=== PATIENT | male | born 1945 | race Caucasian/White ===

== ENCOUNTER 2023-06-20 12:26 | Inpatient (IN) | payer OTHER ==
[2023-06-20] MEDS ORDERED: ALBUTEROL SO4 2.5/IPRATROPIUM 0.5 INH SOL 3 ML VIAL.NEB. NEB ONE (13:09)
[2023-06-20] MEDS: ALBUTEROL SO4 2.5/IPRATROPIUM 0.5 INH SOL 3 ML VIAL.NEB. NEB ONE (13:14)
[2023-06-20] MEDS ORDERED: methylPREDNISolone NA SUCC 125 MG/2 ML VIAL ONE (13:34)
[2023-06-20] MEDS ORDERED: ACETAMINOPHEN INJECTION 100 ML IVPB ONE (13:38)
[2023-06-20 13:39] LABS: BASO % 0.3 % (0-2.0); EOS % 0.2 % (0-4.5); HEMOGLOBIN 8.3 GM/dL (11.7-16.9); LYMPH % 9.5 % (8-40); MCH 20.3 pg (25.7-33.7); MCHC 30.6 g/dl (32.0-35.9); MEAN CELL VOLUME 66.4 fl (80-96); MEAN PLT VOLUME 8.2 fl (7.5-11.1); MONO % 3.8 % (3.8-10.2); NEUT % 86.2 % (42.8-82.8); PLATELET COUNT 328 10^3/uL (134-434); RBC 4.06 M/mm3 (4.00-5.60); RDW 18.8 % (11.9-15.9); WHITE BLOOD COUNT 12.8 K/mm3 (4.0-10.0)
[2023-06-20] MEDS: methylPREDNISolone NA SUCC 125 MG/2 ML VIAL IVPUSH ONE (13:42)
[2023-06-20] MEDS: ACETAMINOPHEN 1000 MG/100 ML BAG IVPB ONE (13:42)
[2023-06-20 13:45] LABS: INR 1.17 (0.83-1.09); PROTHROMBIN TIME (PATIENT) 13.6 SEC (9.7-13.0)
[2023-06-20 13:59] LABS: ALBUMIN 2.1 g/dl (3.4-5.0); CALCIUM 13.6 mg/dL (8.5-10.1)
[2023-06-20 14:00] LABS: BLOOD UREA NITROGEN 20.1 mg/dL (7-18)
[2023-06-20 14:02] LABS: CREATININE 0.8 mg/dL (0.55-1.3)
[2023-06-20 14:04] LABS: BILIRUBIN,TOTAL 0.4 mg/dL (0.2-1); TOT PROT 7.4 g/dl (6.4-8.2)
[2023-06-20 14:15] LABS: VENOUS BASE EXCESS 6.3 mmol/L (-2-2); VENOUS O2 SATURATION 90.6 % (70-80); VENOUS PCO2 42.3 mmHg (38-52); VENOUS PH 7.475 (7.310-7.410)
[2023-06-20 14:18] LABS: ANISOCYTOSIS 0; MACROCYTOSIS 0
[2023-06-20] MEDS ORDERED: PIPERACILLIN/TAZOB 3.375 GM 3.375 GM/50 ML BAG IVPB ONE (14:57)
[2023-06-20] MEDS ORDERED: VANCOMYCIN 1 GRAM (PRE-DOCKED) 1,000 MG/250 ML BAG IVPB ONE (14:57)
[2023-06-20] MEDS ORDERED: PIPERACILLIN/TAZOB 4.5 GM 4.5 GM/100 ML BAG IVPB ONE (15:00)
[2023-06-20] MEDS: PIPERACILLIN/TAZOB 4.5 GM 4.5 GM in DEXTROSE 5%-WATER 100 ML IVPB ONE (15:09)
[2023-06-20] MEDS: VANCOMYCIN 1,000 MG in DEXTROSE 5%-WATER - 250 ML IVPB ONE (15:31)
[2023-06-20 18:25] VITALS: BMI 15.6
[2023-06-20] MEDS ORDERED: ALBUTEROL SO4 2.5/IPRATROPIUM 0.5 INH SOL 3 ML VIAL.NEB. NEB PRN (19:28)
[2023-06-20] MEDS: MIDODRINE HCL 5 MG TABLET PO SCH (21:06)
[2023-06-21] MEDS: methylPREDNISolone NA SUCC 40 MG/1 ML VIAL IVPUSH SCH (02:31)
[2023-06-21] MEDS: PIPERACILLIN/TAZOB 3.375 GM 3.375 GM in DEXTROSE 5%-WATER - 50 ML IVPB SCH ×3 (02:31→17:48)
[2023-06-21 09:24] LABS: HEMATOCRIT 30.5 % (35.4-49); HEMOGLOBIN 8.9 GM/dL (11.7-16.9); MCHC 29.1 g/dl (32.0-35.9); MEAN CELL VOLUME 67.8 fl (80-96); MEAN PLT VOLUME 8.8 fl (7.5-11.1); PLATELET COUNT 351 10^3/uL (134-434); RDW 18.9 % (11.9-15.9); WHITE BLOOD COUNT 24.3 K/mm3 (4.0-10.0)
[2023-06-21 09:31] LABS: MCH 19.8 pg (25.7-33.7)
[2023-06-21 09:45] LABS: POTASSIUM 3.9 mmol/L (3.5-5.1)
[2023-06-21 09:52] LABS: CALCIUM 13.3 mg/dL (8.5-10.1)
[2023-06-21 09:53] LABS: ALBUMIN 2.3 g/dl (3.4-5.0); BLOOD UREA NITROGEN 25.8 mg/dL (7-18)
[2023-06-21 09:56] LABS: BILIRUBIN,TOTAL 0.5 mg/dL (0.2-1); CREATININE 1.2 mg/dL (0.55-1.3)
[2023-06-21] MEDS: SERTRALINE HCL 50 MG TABLET (FP) PO SCH (10:03)
[2023-06-21 10:04] LABS: ANISOCYTOSIS 0; MACROCYTOSIS 0
[2023-06-21] MEDS: ENOXAPARIN NA (PORCINE) 40 MG/0.4 ML DISP.SYRIN SQ SCH (10:04)
[2023-06-21] MEDS: FLUTICASONE/UMECLIDIN/VILANTER(200-62.5-25 TRELEGY ELLIPTA) INAHLER IH SCH (12:03)
[2023-06-21] MEDS: ALBUTEROL SO4 2.5/IPRATROPIUM 0.5 INH SOL 3 ML VIAL.NEB. NEB SCH (12:45)
[2023-06-21] MEDS: SODIUM CHLORIDE 250 ML IV ONE (14:16)
[2023-06-21] MEDS: NYSTATIN 500,000 UNITS/5 ML SUSPENSION PO SCH (14:17)
[2023-06-21] MEDS: BUDESONIDE/FORMETEROL FUMARATE 160/4.5 mcg INHALER IH SCH (14:56)
[2023-06-21] MEDS: MIDODRINE HCL 5 MG TABLET PO SCH (22:18)
[2023-06-22 19:46] LABS: PH,URINE 5.5 (5.0-8.0); URINE APPEARANCE CLEAR; URINE BILIRUBIN NEGATIVE (NEGATIVE); URINE COLOR YELLOW; URINE GLUCOSE (UA) NEGATIVE (NEGATIVE); URINE KETONE NEGATIVE (NEGATIVE); URINE LEUK ESTERASE NEGATIVE (NEGATIVE); URINE NITRITE NEGATIVE (NEGATIVE); URINE PROTEIN NEGATIVE (NEGATIVE); URINE UROBILINOGEN 0.2 mg/dL (0.2-1.0)
[2023-06-24 08:45] LABS: BASO % 0.2 % (0-2.0); HEMATOCRIT 24.2 % (35.4-49); LYMPH % 2.4 % (8-40); MCHC 28.8 g/dl (32.0-35.9); MEAN CELL VOLUME 68.7 fl (80-96); MEAN PLT VOLUME 9.1 fl (7.5-11.1); MONO % 1.3 % (3.8-10.2); NEUT % 96.1 % (42.8-82.8); PLATELET COUNT 199 10^3/uL (134-434); RBC 3.52 M/mm3 (4.00-5.60); RDW 18.8 % (11.9-15.9); WHITE BLOOD COUNT 17.1 K/mm3 (4.0-10.0)
[2023-06-24 08:56] LABS: MCH 19.8 pg (25.7-33.7)
[2023-06-24 09:04] LABS: POTASSIUM 4.1 mmol/L (3.5-5.1)
[2023-06-24 09:11] LABS: CALCIUM 11.5 mg/dL (8.5-10.1)
[2023-06-24 09:12] LABS: ALBUMIN 2.1 g/dl (3.4-5.0); BLOOD UREA NITROGEN 30.1 mg/dL (7-18)
[2023-06-24 09:14] LABS: BILIRUBIN,TOTAL 0.2 mg/dL (0.2-1)
[2023-06-24 09:15] LABS: TOT PROT 6.5 g/dl (6.4-8.2)
[2023-06-24 09:16] LABS: CREATININE 0.8 mg/dL (0.55-1.3)
[2023-06-24 11:45] LABS: ANISOCYTOSIS 3+; MACROCYTOSIS 0
[2023-06-24] MEDS: AMINO ACIDS/PROTEIN HYDROLYS 30 ML LIQUID.PKT PO SCH (17:35)
[2023-06-25] MEDS: MULTIVITAMINS THER W-MINERALS COMBO TABLET (FP) PO SCH (10:28)
[2023-06-27 10:15] LABS: HEMATOCRIT 26.6 % (35.4-49); MCH 20.3 pg (25.7-33.7); MCHC 29.9 g/dl (32.0-35.9); MEAN CELL VOLUME 67.9 fl (80-96); MEAN PLT VOLUME 8.8 fl (7.5-11.1); PLATELET COUNT 216 10^3/uL (134-434); RBC 3.92 M/mm3 (4.00-5.60); RDW 19.5 % (11.9-15.9); WHITE BLOOD COUNT 18.2 K/mm3 (4.0-10.0)
[2023-06-27] MEDS: methylPREDNISolone NA SUCC 40 MG/1 ML VIAL IVPUSH SCH (10:43)
[2023-06-29] MEDS: PIPERACILLIN/TAZOB 3.375 GM 3.375 GM in DEXTROSE 5%-WATER - 50 ML IVPB SCH (01:09)
[2023-06-30 08:48] LABS: BASO % 0.1 % (0-2.0); EOS % 0.2 % (0-4.5); HEMATOCRIT 25.7 % (35.4-49); HEMOGLOBIN 7.9 GM/dL (11.7-16.9); LYMPH % 7.1 % (8-40); MCH 21.1 pg (25.7-33.7); MCHC 30.9 g/dl (32.0-35.9); MEAN CELL VOLUME 68.4 fl (80-96); MEAN PLT VOLUME 8.8 fl (7.5-11.1); MONO % 3.3 % (3.8-10.2); NEUT % 89.3 % (42.8-82.8); PLATELET COUNT 239 10^3/uL (134-434); RBC 3.75 M/mm3 (4.00-5.60); RDW 19.6 % (11.9-15.9)
[2023-06-30 09:10] LABS: POTASSIUM 3.7 mmol/L (3.5-5.1)
[2023-06-30 09:14] LABS: BLOOD UREA NITROGEN 25.1 mg/dL (7-18); CALCIUM 11.2 mg/dL (8.5-10.1)
[2023-06-30 09:17] LABS: CREATININE 0.8 mg/dL (0.55-1.3)
[2023-06-30 09:19] LABS: BILIRUBIN,TOTAL 0.3 mg/dL (0.2-1)
[2023-06-30 11:09] LABS: ANISOCYTOSIS 1+; MACROCYTOSIS 0
[2023-07-01] MEDS: ATORVASTATIN CA 10 MG TABLET (FP) PO SCH (22:32)
[2023-07-02] MEDS: methylPREDNISolone NA SUCC 40 MG/1 ML VIAL IVPUSH SCH (10:33)
[2023-07-02] MEDS: SODIUM CHLORIDE 250 ML IV ONE (10:36)
[2023-07-02] MEDS: DEXTROSE 5%-0.45% SALINE 1,000 ML IV SCH (14:58)
[2023-07-03 08:40] LABS: HEMATOCRIT 24.7 % (35.4-49); HEMOGLOBIN 7.5 GM/dL (11.7-16.9); MCH 21.3 pg (25.7-33.7); MCHC 30.4 g/dl (32.0-35.9); MEAN CELL VOLUME 69.9 fl (80-96); MEAN PLT VOLUME 8.5 fl (7.5-11.1); PLATELET COUNT 223 10^3/uL (134-434); RBC 3.54 M/mm3 (4.00-5.60); RDW 20.7 % (11.9-15.9); WHITE BLOOD COUNT 19.7 K/mm3 (4.0-10.0)
[2023-07-03 08:50] LABS: POTASSIUM 3.9 mmol/L (3.5-5.1)
[2023-07-03 08:56] LABS: CALCIUM 11.8 mg/dL (8.5-10.1)
[2023-07-03 08:57] LABS: ALBUMIN 1.9 g/dl (3.4-5.0)
[2023-07-03 09:00] LABS: CREATININE 0.6 mg/dL (0.55-1.3)
[2023-07-03 09:02] LABS: TOT PROT 5.8 g/dl (6.4-8.2)
[2023-07-03 09:03] LABS: BILIRUBIN,TOTAL 0.3 mg/dL (0.2-1)
[2023-07-03 09:54] LABS: ANISOCYTOSIS 2+; MACROCYTOSIS 1+
[2023-07-04 00:30] LABS: URINE APPEARANCE CLEAR; URINE BILIRUBIN NEGATIVE (NEGATIVE); URINE COLOR YELLOW; URINE GLUCOSE (UA) NEGATIVE (NEGATIVE); URINE KETONE NEGATIVE (NEGATIVE); URINE LEUK ESTERASE NEGATIVE (NEGATIVE); URINE NITRITE NEGATIVE (NEGATIVE); URINE PROTEIN NEGATIVE (NEGATIVE); URINE UROBILINOGEN 0.2 mg/dL (0.2-1.0)
[2023-07-04] MEDS: methylPREDNISolone NA SUCC 40 MG/1 ML VIAL IVPUSH SCH (10:02)
[2023-07-04] MEDS ORDERED: PIPERACILLIN/TAZOBACTAM 4.5 GM VIAL IVPB ONE (16:51)
[2023-07-04] MEDS: PIPERACILLIN/TAZOB 4.5 GM 4.5 GM in DEXTROSE 5%-WATER 100 ML IVPB SCH (16:56)
[2023-07-04] MEDS: VANCOMYCIN/WATER FOR INJ (PEG) 1,000 MG/200 ML BAG IVPB SCH (17:45)
[2023-07-05 08:57] LABS: CALCIUM 12.8 mg/dL (8.5-10.1); POTASSIUM 4.1 mmol/L (3.5-5.1)
[2023-07-05 08:59] LABS: BLOOD UREA NITROGEN 26.6 mg/dL (7-18)
[2023-07-05 09:02] LABS: CREATININE 0.7 mg/dL (0.55-1.3)
[2023-07-05 09:11] LABS: HEMATOCRIT 27.5 % (35.4-49); HEMOGLOBIN 8.3 GM/dL (11.7-16.9); MCH 21.9 pg (25.7-33.7); MCHC 30.2 g/dl (32.0-35.9); MEAN CELL VOLUME 72.5 fl (80-96); MEAN PLT VOLUME 8.9 fl (7.5-11.1); PLATELET COUNT 217 10^3/uL (134-434); RDW 24.2 % (11.9-15.9); WHITE BLOOD COUNT 19.4 K/mm3 (4.0-10.0)
[2023-07-05 10:18] LABS: ANISOCYTOSIS 0; MACROCYTOSIS 0
[2023-07-05] MEDS: LACTATED RINGERS SOLUTION 1,000 ML/1,000 ML INFUS.BAG IV SCH (14:40)
[2023-07-06 07:34] LABS: HEMATOCRIT 27.8 % (35.4-49); HEMOGLOBIN 8.2 GM/dL (11.7-16.9); MCH 21.3 pg (25.7-33.7); MCHC 29.6 g/dl (32.0-35.9); MEAN CELL VOLUME 72.1 fl (80-96); MEAN PLT VOLUME 8.8 fl (7.5-11.1); PLATELET COUNT 195 10^3/uL (134-434); RBC 3.85 M/mm3 (4.00-5.60); RDW 24.6 % (11.9-15.9); WHITE BLOOD COUNT 16.9 K/mm3 (4.0-10.0)
[2023-07-06 07:52] LABS: POTASSIUM 3.6 mmol/L (3.5-5.1)
[2023-07-06 07:53] LABS: CALCIUM 12.6 mg/dL (8.5-10.1)
[2023-07-06 07:54] LABS: BLOOD UREA NITROGEN 26.1 mg/dL (7-18)
[2023-07-06 07:57] LABS: CREATININE 0.7 mg/dL (0.55-1.3)
[2023-07-06 09:49] LABS: ANISOCYTOSIS 1+; MACROCYTOSIS 0
[2023-07-06] MEDS ORDERED: ALBUTEROL SO4 0.083% IH SOL 2.5 MG/3 ML VIAL.NEB. NEB PRN (10:02)
[2023-07-06] MEDS: methylPREDNISolone NA SUCC 40 MG/1 ML VIAL IVPUSH SCH (12:28)
[2023-07-06] MEDS ORDERED: ALBUTEROL SO4 0.083% IH SOL 2.5 MG/3 ML VIAL.NEB. NEB SCH (14:00)
[2023-07-06] MEDS: ALBUTEROL SO4 0.083% IH SOL 2.5 MG/3 ML VIAL.NEB. NEB SCH (14:43)
[2023-07-06] MEDS: ACETYLCYSTEINE 20% 200MG/ML 4 ML VIAL *FOR ORAL / INH USE ONLY NEB SCH (14:43)
[2023-07-06] MEDS: ACETAMINOPHEN 1000 MG/100 ML BAG IVPB PRN (15:35)
[2023-07-07 09:02] LABS: HEMOGLOBIN 7.9 GM/dL (11.7-16.9); MCH 21.1 pg (25.7-33.7); MCHC 29.3 g/dl (32.0-35.9); MEAN CELL VOLUME 72.2 fl (80-96); MEAN PLT VOLUME 8.7 fl (7.5-11.1); PLATELET COUNT 180 10^3/uL (134-434); RBC 3.73 M/mm3 (4.00-5.60); WHITE BLOOD COUNT 15.6 K/mm3 (4.0-10.0)
[2023-07-07 09:19] LABS: POTASSIUM 3.4 mmol/L (3.5-5.1)
[2023-07-07 09:31] LABS: CALCIUM 12.4 mg/dL (8.5-10.1)
[2023-07-07 09:34] LABS: CREATININE 0.7 mg/dL (0.55-1.3)
[2023-07-07 09:37] LABS: BILIRUBIN,TOTAL 0.3 mg/dL (0.2-1)
[2023-07-07 10:23] LABS: ANISOCYTOSIS 2+; MACROCYTOSIS 0
[2023-07-08] MEDS: ACETAMINOPHEN 1000 MG/100 ML BAG IVPB PRN (10:54)
[2023-07-10 08:14] LABS: HEMATOCRIT 29.8 % (35.4-49); HEMOGLOBIN 8.9 GM/dL (11.7-16.9); MCH 21.6 pg (25.7-33.7); MEAN CELL VOLUME 72.1 fl (80-96); MEAN PLT VOLUME 8.9 fl (7.5-11.1); PLATELET COUNT 178 10^3/uL (134-434); RBC 4.13 M/mm3 (4.00-5.60); RDW 26.8 % (11.9-15.9); WHITE BLOOD COUNT 16.9 K/mm3 (4.0-10.0)
[2023-07-10 08:16] LABS: POTASSIUM 3.4 mmol/L (3.5-5.1)
[2023-07-10 08:23] LABS: CALCIUM 12.9 mg/dL (8.5-10.1)
[2023-07-10 08:24] LABS: BLOOD UREA NITROGEN 24.4 mg/dL (7-18)
[2023-07-10 08:27] LABS: CREATININE 0.7 mg/dL (0.55-1.3)
[2023-07-10 08:28] LABS: BILIRUBIN,TOTAL 0.2 mg/dL (0.2-1)
[2023-07-10] MEDS: methylPREDNISolone NA SUCC 40 MG/1 ML VIAL IVPUSH SCH (09:55)
[2023-07-10] MEDS: SENNOSIDES/DOCUSATE COMBO (SENNA PLUS) TABLET (UD) PO PRN (09:55)
[2023-07-10 09:57] LABS: ANISOCYTOSIS 3+; MACROCYTOSIS 0
[2023-07-11] MEDS: predniSONE 20 MG TABLET (UD) PO SCH (09:57)
[2023-07-12] MEDS: ACETAMINOPHEN 325 MG TABLET (FP) PO PRN (14:54)
[2023-07-12 22:29] VITALS: RESP 20
[2023-07-14] MEDS ORDERED: predniSONE 20 MG TABLET (UD) PO SCH (12:34)
[2023-07-15 02:46] VITALS: BP 80/60; PULSE 111; TEMP 97.6
== END 2023-07-15 02:00 | DRG 871 ==
LOC: JER 12:26 → JERBED 13:46 → J8W 17:58
PROVIDERS: ADMIT Internal Medicine; ATTEND Internal Medicine
DX: A41.9 Sepsis, unspecified organism (principal); E43 Unspecified severe protein-calorie malnutrition; J18.9 Pneumonia, unspecified organism; J96.01 Acute respiratory failure with hypoxia; R53.2 Functional quadriplegia; R64 Cachexia; J44.1 Chronic obstructive pulmonary disease with (acute) exacerbation; Z68.1 Body mass index [BMI] 19.9 or less, adult; C78.39 Secondary malignant neoplasm of other respiratory organs; K21.9 Gastro-esophageal reflux disease without esophagitis; F41.8 Other specified anxiety disorders; D72.829 Elevated white blood cell count, unspecified; R62.7 Adult failure to thrive
CPT/HCPCS: 0241U-QW; 36415; 70491-TC; 71045-TC-FY; 71250-TC; 80048; 80053; 80061; 81003; 82803; 82962; 83036; 83605; 83880; 84443; 84484; 85025; 85027; 85610; 85730; 86850; 86900; 86901; 87040; 87086; 87635; 87807; 93005; 93010; 93306-TC; 94640; 97116-GP; 97161-GP; G0480; J0131

== ENCOUNTER 2023-07-15 13:47 | Inpatient (IN) | payer OTHER ==
[2023-07-15] MEDS: SODIUM CHLORIDE 0.9% 500 ML INFUS.BAG IV ONE ×2 (14:36→16:24)
[2023-07-15] MEDS ORDERED: methylPREDNISolone NA SUCC 125 MG/2 ML VIAL ONE (14:37)
[2023-07-15] MEDS: ALBUTEROL SO4 2.5/IPRATROPIUM 0.5 INH SOL 3 ML VIAL.NEB. NEB SCH (14:49)
[2023-07-15] MEDS: methylPREDNISolone NA SUCC 125 MG/2 ML VIAL IVPB ONE (14:50)
[2023-07-15 16:12] LABS: EPI CELLS 28 /uL (0-25.1); HYALINE CASTS 7 /uL (0-3.1); PH,URINE 5.5 (5.0-8.0); URINE APPEARANCE CLOUDY; URINE BACTERIA 18 /uL (0-1359); URINE BILIRUBIN NEGATIVE (NEGATIVE); URINE COLOR DK YELLOW; URINE GLUCOSE (UA) NEGATIVE (NEGATIVE); URINE KETONE NEGATIVE (NEGATIVE); URINE LEUK ESTERASE 2+ (NEGATIVE); URINE NITRITE NEGATIVE (NEGATIVE); URINE PROTEIN 1+ (NEGATIVE); URINE RBC 47 /uL (0-23.9); URINE UROBILINOGEN 0.2 mg/dL (0.2-1.0); URINE WBC 70 /uL (0-25.8)
[2023-07-15 16:13] LABS: BASO % 0.1 % (0-2.0); EOS % 0.2 % (0-4.5); LYMPH % 13.3 % (8-40); MCH 22.2 pg (25.7-33.7); MCHC 29.4 g/dl (32.0-35.9); MEAN CELL VOLUME 75.5 fl (80-96); MEAN PLT VOLUME 9.2 fl (7.5-11.1); NEUT % 82.4 % (42.8-82.8); PLATELET COUNT 90 10^3/uL (134-434); RBC 1.99 M/mm3 (4.00-5.60); RDW 26.7 % (11.9-15.9); WHITE BLOOD COUNT 5.9 K/mm3 (4.0-10.0)
[2023-07-15] MEDS ORDERED: PIPERACILLIN/TAZOB 4.5 GM 4.5 GM/100 ML BAG IVPB ONE (16:15)
[2023-07-15] MEDS ORDERED: VANCOMYCIN 1 GRAM (PRE-DOCKED) 1,000 MG/250 ML BAG IVPB ONE (16:16)
[2023-07-15 16:19] LABS: VENOUS BASE EXCESS -12.6 mmol/L (-2-2); VENOUS O2 SATURATION 52.6 % (70-80); VENOUS PCO2 26.5 mmHg (38-52); VENOUS PH 7.303 (7.310-7.410)
[2023-07-15 16:24] LABS: HEMOGLOBIN 4.4 GM/dL (11.7-16.9)
[2023-07-15] MEDS: VANCOMYCIN 1,000 MG in DEXTROSE 5%-WATER - 250 ML IVPB ONE (16:24)
[2023-07-15] MEDS: PIPERACILLIN/TAZOB 4.5 GM 4.5 GM in DEXTROSE 5%-WATER 100 ML IVPB ONE (16:24)
[2023-07-15 16:33] LABS: INR 2.01 (0.83-1.09); PROTHROMBIN TIME (PATIENT) 23.1 SEC (9.7-13.0)
[2023-07-15 16:36] LABS: ACTIVATED PTT 40.7 SECONDS (25.2-36.5)
[2023-07-15 18:05] LABS: ANISOCYTOSIS 3+; MACROCYTOSIS 0
[2023-07-15] MEDS ORDERED: ACETAMINOPHEN INJECTION 100 ML IVPB ONE (18:29)
[2023-07-15] MEDS: ACETAMINOPHEN 1000 MG/100 ML BAG IVPB ONE (18:35)
[2023-07-15 19:10] LABS: URINE CRYSTALS FEW /hpf
[2023-07-15 20:31] LABS: HEMATOCRIT 26.9 % (35.4-49); HEMOGLOBIN 8.2 GM/dL (11.7-16.9); MCH 22.2 pg (25.7-33.7); MCHC 30.4 g/dl (32.0-35.9); MEAN CELL VOLUME 73.1 fl (80-96); PLATELET COUNT 129 10^3/uL (134-434); RBC 3.68 M/mm3 (4.00-5.60); RDW 27.3 % (11.9-15.9); VENOUS BASE EXCESS 1.4 mmol/L (-2-2); VENOUS O2 SATURATION 51.6 % (70-80); VENOUS PCO2 49.6 mmHg (38-52); VENOUS PH 7.358 (7.310-7.410); WHITE BLOOD COUNT 8.9 K/mm3 (4.0-10.0)
[2023-07-15 20:38] LABS: INR 1.11 (0.83-1.09)
[2023-07-15 20:40] LABS: ADD RBC MORPHOLOGY YES
[2023-07-15 20:52] LABS: POTASSIUM 3.6 mmol/L (3.5-5.1)
[2023-07-15 20:54] LABS: CALCIUM 11.8 mg/dL (8.5-10.1)
[2023-07-15 20:58] LABS: CREATININE 1.6 mg/dL (0.55-1.3)
[2023-07-15 20:59] LABS: BILIRUBIN,TOTAL 0.3 mg/dL (0.2-1)
[2023-07-15 21:13] LABS: ALBUMIN 1.7 g/dl (3.4-5.0); BLOOD UREA NITROGEN 57.2 mg/dL (7-18); LACTIC ACID 4.3 mmol/L (0.4-2.0); TOT PROT 5.4 g/dl (6.4-8.2)
[2023-07-15 21:22] LABS: ACTIVATED PTT > 200.0 SECONDS (25.2-36.5)
[2023-07-15 21:46] LABS: ANISOCYTOSIS 3+; MACROCYTOSIS 0; OVALOCYTE 1+; TARGET CELLS 1+
[2023-07-15 22:46] LABS: MAGNESIUM 1.7 mg/dL (1.8-2.4)
[2023-07-15] MEDS: SODIUM CHLORIDE 1,000 ML IV STA (23:23)
[2023-07-16] MEDS ORDERED: SENNOSIDES/DOCUSATE COMBO (SENNA PLUS) TABLET (UD) PO PRN (00:07)
[2023-07-16] MEDS: PIPERACILLIN/TAZOB 3.375 GM 3.375 GM in DEXTROSE 5%-WATER - 50 ML IVPB SCH ×2 (00:14→18:00)
[2023-07-16] MEDS ORDERED: PIPERACILLIN/TAZOB 3.375 GM 3.375 GM in DEXTROSE 5%-WATER - 50 ML IVPB SCH (00:30)
[2023-07-16 04:57] LABS: HEMOGLOBIN 8.1 GM/dL (11.7-16.9); MCH 22.4 pg (25.7-33.7); MEAN CELL VOLUME 72.4 fl (80-96); MEAN PLT VOLUME 9.6 fl (7.5-11.1); PLATELET COUNT 131 10^3/uL (134-434); RBC 3.59 M/mm3 (4.00-5.60); RDW 26.5 % (11.9-15.9); WHITE BLOOD COUNT 9.6 K/mm3 (4.0-10.0)
[2023-07-16 05:21] LABS: POTASSIUM 3.3 mmol/L (3.5-5.1)
[2023-07-16 05:24] LABS: CALCIUM 11.3 mg/dL (8.5-10.1)
[2023-07-16 05:25] LABS: ALBUMIN 1.8 g/dl (3.4-5.0); BLOOD UREA NITROGEN 61.2 mg/dL (7-18)
[2023-07-16 05:28] LABS: CREATININE 1.5 mg/dL (0.55-1.3)
[2023-07-16 05:30] LABS: BILIRUBIN,TOTAL 0.5 mg/dL (0.2-1); TOT PROT 5.6 g/dl (6.4-8.2)
[2023-07-16 05:43] LABS: LACTIC ACID 2.8 mmol/L (0.4-2.0)
[2023-07-16] MEDS: NYSTATIN 500,000 UNITS/5 ML SUSPENSION PO SCH (05:59)
[2023-07-16] MEDS: KCL 10 MEQ IVPB 10 MEQ/100 ML INFUS.BAG IVPB SCH ×2 (06:41→16:17)
[2023-07-16 06:48] LABS: ANISOCYTOSIS 3+; MACROCYTOSIS 0; ROULEAU 1+; TARGET CELLS 1+
[2023-07-16] MEDS: ACETYLCYSTEINE 20% 200MG/ML 4 ML VIAL *FOR ORAL / INH USE ONLY NEB SCH (07:40)
[2023-07-16] MEDS: ALBUTEROL SO4 0.083% IH SOL 2.5 MG/3 ML VIAL.NEB. NEB SCH (07:40)
[2023-07-16] MEDS: BUDESONIDE/FORMETEROL FUMARATE 160/4.5 mcg INHALER IH SCH (09:48)
[2023-07-16] MEDS: MIDODRINE HCL 5 MG TABLET PO SCH (09:48)
[2023-07-16] MEDS: SERTRALINE HCL 50 MG TABLET (FP) PO SCH (09:49)
[2023-07-16] MEDS: SODIUM CHLORIDE 1,000 ML IV SCH (10:57)
[2023-07-16] MEDS: methylPREDNISolone NA SUCC 40 MG/1 ML VIAL IVPUSH SCH (13:39)
[2023-07-16] MEDS: ALBUTEROL SO4 0.083% IH SOL 2.5 MG/3 ML VIAL.NEB. NEB PRN (14:00)
[2023-07-16] MEDS: ALBUTEROL SO4 2.5/IPRATROPIUM 0.5 INH SOL 3 ML VIAL.NEB. NEB SCH (15:33)
[2023-07-16] MEDS ORDERED: VANCOMYCIN 750 MG in DEXTROSE 5%-WATER - 150 ML IVPB SCH (16:00)
[2023-07-16] MEDS ORDERED: VANCOMYCIN/WATER FOR INJ (PEG) 750 MG/150 ML BAG IVPB SCH (16:00)
[2023-07-16] MEDS: SODIUM CHLORIDE 0.45% 1,000 ML IV SCH (17:00)
[2023-07-16] MEDS: ATORVASTATIN CA 10 MG TABLET (FP) PO SCH (21:53)
[2023-07-17 07:22] LABS: POTASSIUM 3.4 mmol/L (3.5-5.1)
[2023-07-17 07:24] LABS: CALCIUM 12.3 mg/dL (8.5-10.1)
[2023-07-17 07:25] LABS: ALBUMIN 1.7 g/dl (3.4-5.0); BLOOD UREA NITROGEN 58.6 mg/dL (7-18)
[2023-07-17 07:30] LABS: BILIRUBIN,TOTAL 0.3 mg/dL (0.2-1); TOT PROT 5.8 g/dl (6.4-8.2)
[2023-07-17 13:45] VITALS: RESP 18
[2023-07-17 13:50] VITALS: BMI 15.3
[2023-07-17] MEDS: SODIUM CHLORIDE 0.45% 1,000 ML IV SCH (16:14)
[2023-07-17 20:29] VITALS: BP 94/60; TEMP 97.6
[2023-07-17 22:48] VITALS: PULSE 64
[2023-07-18] MEDS: DEXTROSE 5%-WATER - 1,000 ML with POTASSIUM CHLORIDE 20 MEQ IV SCH (00:51)
== END 2023-07-18 04:00 | disposition expired | DRG 871 ==
LOC: JER 13:47 → JERBED 16:00 → J4W 22:32
PROVIDERS: ADMIT Internal Medicine; ATTEND Internal Medicine
DX: A41.9 Sepsis, unspecified organism (principal); E43 Unspecified severe protein-calorie malnutrition; J96.21 Acute and chronic respiratory failure with hypoxia; J69.0 Pneumonitis due to inhalation of food and vomit; J44.1 Chronic obstructive pulmonary disease with (acute) exacerbation; E87.0 Hyperosmolality and hypernatremia; Z68.1 Body mass index [BMI] 19.9 or less, adult; J44.0 Chronic obstructive pulmonary disease with (acute) lower respiratory infection; R64 Cachexia; N17.9 Acute kidney failure, unspecified; E87.20 Acidosis, unspecified; C32.9 Malignant neoplasm of larynx, unspecified; D69.6 Thrombocytopenia, unspecified; R62.7 Adult failure to thrive; E83.52 Hypercalcemia; L89.152 Pressure ulcer of sacral region, stage 2; K21.9 Gastro-esophageal reflux disease without esophagitis; F41.8 Other specified anxiety disorders
CPT/HCPCS: 0241U-QW; 36415; 71045-TC-FY; 80053; 81003; 82272; 82550; 82803; 82962; 83605; 83735; 83970; 84100; 84484; 85025; 85610; 85730; 86850; 86900; 86901; 87040; 87086; 93005; 93010; 94640; 99285-25; E0186; J0131